=== PATIENT | male | born 1965 | race Caucasian/White ===

== ENCOUNTER 2017-05-11 08:45 | Day surgery (SDC) | payer OTHER, BC ==
[~2017-05-11] VITALS: Ht 180.3 cm; Wt 102.7 kg
[~2017-05-11 08:45] MED LIST: CYCL10; NEBI5; Ramipril10 MG
== END 2017-05-11 10:48 | disposition home or self-care (01) ==
LOC: ORSCSDS 08:45
PROVIDERS: Internal Medicine Gastroenterology
PROC: 0DBH8ZX Excision of Cecum, Via Natural or Artificial Opening Endoscopic, Diagnostic (ICD-10-PCS; principal; 2017-05-11 10:00)
PROC: 0DBM8ZX Excision of Descending Colon, Via Natural or Artificial Opening Endoscopic, Diagnostic (ICD-10-PCS; principal; 2017-05-11 10:00)
DX: Z12.11 Encounter for screening for malignant neoplasm of colon (principal); D12.0 Benign neoplasm of cecum; K63.5 Polyp of colon; K57.30 Diverticulosis of large intestine without perforation or abscess without bleeding; I10 Essential (primary) hypertension; F17.220 Nicotine dependence, chewing tobacco, uncomplicated; Z79.899 Other long term (current) drug therapy
CPT/HCPCS: 88305; J1980

== ENCOUNTER → 2019-01-30 | Outpatient (CLI) | payer OTHER, BC | LOC: PLD 08:02 → LAB SHORT 08:02 | DX: D48.5 Neoplasm of uncertain behavior of skin (principal) | CPT/HCPCS: 88305; 88312 ==

== ENCOUNTER 2020-11-09 07:37 | Day surgery (SDC) | payer OTHER, BC ==
[~2020-11-09 07:37] MED LIST changes: -NEBI5; +NEBI5 PO; -Ramipril10 MG; +Ramipril10 MG PO
[2020-11-09] MEDS ORDERED: Aspir 8181 MG PO (09:21)
[2020-11-09] MEDS ORDERED: HYDCHL25 PO (09:23)
[2020-11-09] MEDS ORDERED: PRAV20 PO (09:25)
[2020-11-09 09:45] LABS: Creatinine (POC) 1.1 mg/dL (0.8-1.3)
[2020-11-09 10:13] LABS: Anion Gap 6 mmol/L (6-16); Blood Urea Nitrogen 19 mg/dL (8-24); Bun/Creatinine Ratio 17.3 (12.0-20.0); CO2, Blood 29 mmol/L (21-32); Calcium, Blood 9.5 mg/dL (8.5-10.1); Chloride, Blood 105 mmol/L (98-108); Glomerular Filtration Rate >60 (60-); Glucose, Blood 100 mg/dL (70-99); Potassium, Blood 4.2 mmol/L (3.5-5.5); Sodium, Blood 140 mmol/L (136-145)
--- NOTE | 2020-11-09 10:38 | NUR ---
Discharge instructions reviewed with patient. Patient verbalizes understanding. Copy given to patient to take home. No c/o. Stable on feet.
== END 2020-11-09 10:39 | disposition home or self-care (01) ==
LOC: CT 07:37 → ORSCMMR 07:37 → ORD 07:37 → ECHO 08:00 → ORSCMMR 08:00 → CT 10:00 → ORSCMMR 10:39
PROVIDERS: Internal Medicine Cardiovascular Disease
DX: I25.10 Atherosclerotic heart disease of native coronary artery without angina pectoris (principal); I10 Essential (primary) hypertension; E78.5 Hyperlipidemia, unspecified; E66.9 Obesity, unspecified; G47.33 Obstructive sleep apnea (adult) (pediatric); Z79.82 Long term (current) use of aspirin; Z99.89 Dependence on other enabling machines and devices
CPT/HCPCS: 72100; 75574; 80048; 82565; 93306; Q9967

== ENCOUNTER 2022-06-16 06:43 | Emergency (ER) | payer BC, OTHER ==
[~2022-06-16] VITALS: Ht 180.3 cm; Wt 107.5 kg
[~2022-06-16 06:43] MED LIST changes: +Aspir 8181 MG PO; +HYDCHL25 PO; +PRAV20 PO
[2022-06-16] MEDS ORDERED: LIPITOR80 MG PO (08:04)
[2022-06-16 09:09] LABS: BASOPHILS ABSOLUTE AUTO 0.06 K/mm3 (0.00-0.23); BASOPHILS PERCENT AUTO 1 % (0-2); EOSINOPHILS ABSOLUTE AUTO 0.23 K/mm3 (0.00-0.68); EOSINOPHILS PERCENT AUTO 2 % (0-6); Hematocrit 36.9 % (37.0-53.0); Hemoglobin 13.1 g/dL (13.5-17.5); IMMATURE GRAN ABSOLUTE AUTO 0.05 K/mm3 (0.00-0.10); IMMATURE GRAN PERCENT AUTO 1 % (0-1); LYMPHOCYTES ABSOLUTE AUTO 1.46 K/mm3 (0.84-5.20); LYMPHOCYTES PERCENT AUTO 14 % (21-46); MONOCYTES ABSOLUTE AUTO 1.01 K/mm3 (0.16-1.47); MONOCYTES PERCENT AUTO 10 % (4-13); Mean Corpuscular HGB 30.8 pg (26.0-34.0); Mean Corpuscular HGB Conc 35.5 g/dL (31.5-36.5); Mean Corpuscular Volume 87 fL (80-100); Mean Platelet Volume 9.7 fL (9.1-12.4); NEUTROPHILS ABSOLUTE AUTO 7.33 K/mm3 (1.96-9.15); NEUTROPHILS PERCENT AUTO 72 % (41-73); Platelet Count 182 K/mm3 (150-400); RDW Coefficient Variation 11.8 % (11.7-14.2); RDW Standard Deviation 37.3 fL (35.1-46.3); Red Blood Cell Count 4.26 M/mm3 (4.30-5.90); White Blood Cell Count 10.14 K/mm3 (4.00-11.30)
[2022-06-16 09:26] LABS: Albumin, Blood 3.2 g/dL (3.4-5.0); Albumin/Globulin Ratio 0.9 (0.8-1.8); Bilirubin, Total 0.4 mg/dL (0.1-1.0); Bun/Creatinine Ratio 22.6 (12.0-20.0); Creatinine, Blood 0.93 mg/dL (0.60-1.20); Globulin, Blood 3.7 g/dL (2.2-4.0); Potassium, Blood 3.7 mmol/L (3.5-5.5); Total Protein, Blood 6.9 g/dL (6.4-8.2)
[2022-06-16 09:38] VITALS: BP 119/86
[2022-06-16] MEDS ORDERED: HYDR1TAB94 PO (13:02)
== END 2022-06-16 11:25 | disposition home or self-care (01) ==
LOC: ER 06:43
PROVIDERS: Physician Assistant
DX: L02.215 Cutaneous abscess of perineum (principal); Z79.899 Other long term (current) drug therapy; Z79.82 Long term (current) use of aspirin
CPT/HCPCS: 36415; 46040; 72193; 80053; 85025; 96374-59; 96375-59; 99284-25; J1885; J3010; Q9967